=== PATIENT | male | born 1995 ===

== ENCOUNTER → 2020-10-12 | Outpatient (REF) | payer MEDICAID, OTHER | LOC: M WUC 12:18 | PROVIDERS: ATTEND Physician Assistant | DX: J02.9 Acute pharyngitis, unspecified (principal) ==

== ENCOUNTER → 2020-10-30 | Outpatient (CLI) | payer SELFPAY | LOC: M LABSMTC 09:54 | PROVIDERS: ATTEND Pediatrics | DX: Z20.822 Contact with and (suspected) exposure to COVID-19 (principal) ==